=== PATIENT | female | born 1980 | race Two or more races ===

== ENCOUNTER 2020-07-16 00:59 | Emergency (ER) | payer OTHER ==
[2020-07-16 01:34] VITALS: TEMP 98.4; BMI 29.9
[2020-07-16] MEDS ORDERED: predniSONE 20 MG TABLET (UD) PO ONE (03:19)
[2020-07-16] MEDS ORDERED: predniSONE 20 MG TABLET (UD) ONE ×2 (03:41→03:42)
[2020-07-16 04:30] VITALS: BP 145/83; PULSE 68
== END 2020-07-16 04:30 | disposition home or self-care (01) ==
LOC: JER 00:59
DX: G51.0 Bell's palsy (principal)
CPT/HCPCS: 99284-25